=== PATIENT | female | born 1950 | race Caucasian/White ===

== ENCOUNTER 2016-07-16 03:10 | Emergency (ER) | payer MEDICARE ==
[2016-07-16] MEDS ORDERED: IBUPROFEN 600 MG TABLET ONE (04:53)
[2016-07-16] MEDS ORDERED: DEXAMETHASONE 4 MG TABLET ONE (04:53)
[2016-07-16] MEDS ORDERED: ACETAMINOPHEN 325 MG TABLET ONE (04:53)
== END 2016-07-16 06:56 | disposition home or self-care (01) ==
LOC: ED 03:10
DX: T50.905A Adverse effect of unspecified drugs, medicaments and biological substances, initial encounter (principal); M54.5 Low back pain; K58.9 Irritable bowel syndrome, unspecified; G89.29 Other chronic pain; E03.9 Hypothyroidism, unspecified; F41.9 Anxiety disorder, unspecified; Z79.899 Other long term (current) drug therapy; Z88.5 Allergy status to narcotic agent; Z88.8 Allergy status to other drugs, medicaments and biological substances
CPT/HCPCS: 84484; 99284; 99283; A9270 ×3